=== PATIENT | male | born 1940 | race Caucasian/White ===

== ENCOUNTER 2024-04-05 12:01 | Inpatient (IN) | payer MEDICARE ==
[2024-04-05 12:58] LABS: #Basophils Less than 0.03 10x3/uL (0.0-0.2); #Eosinphils Less than 0.03 10x3/uL (0.0-0.7); %Basophils 0.1 % (0.0-1.0); %Eosinophils 0.1 % (0.0-10.0); %Lymphocytes 9.3 % (21.0-51.0); %Monocytes 8.1 % (0.0-10.0); %Neutrophils 80.6 % (42.0-75.0); Hematocrit 22.4 % (42.0-52.0); Hemoglobin 7.4 g/dL (14.0-18.0); Mean Corpuscular Hemoglobin 31.6 pg (27.0-31.0); Mean Corpuscular Volume 95.7 fL (78.0-98.0); Mean Platelet Volume 12.4 fL (7.4-10.4); Platelet Count 136 10x3/uL (130-400); Red Blood Cell (RBC) Count 2.34 mill/uL (4.70-6.10)
[2024-04-05 13:18] LABS: Troponin I 0.172 ng/mL (< 0.028)
[2024-04-05 13:26] LABS: ALT (SGPT) 24 U/L (8-55); AST (SGOT) 32 U/L (5-34); Albumin 2.2 g/dL (3.4-4.8); Alkaline Phosphatase 77 U/L (40-110); Anion Gap 16 mmol/L (10-20); BUN (Urea Nitrogen) 25 mg/dL (8.4-25.7); Bilirubin, Total 0.5 mg/dL (0.2-1.2); Calc. Creatinine Clearance 0 mL/min (70-130); Calcium 7.6 mg/dL (7.8-10.44); Carbon Dioxide 26 mmol/L (23-31); Chloride 102 mmol/L (98-107); Estimated GFR 13; Globulin 3.3 g/dL (2.4-3.5); Glucose 117 mg/dL (83-110); Potassium 3.4 mmol/L (3.5-5.1); Protein, Total 5.5 g/dL (5.8-8.1); Sodium 141 mmol/L (136-145)
[2024-04-05] MEDS ORDERED: Doxycycline 100 MG CAP ONE (14:32)
[2024-04-05] MEDS ORDERED: Sodium Chloride 0.9% 100 ML ONE (14:33)
[2024-04-05] MEDS ORDERED: cefTRIAXone (ROCEPHIN) 2 GM VIAL ONE (14:33)
[2024-04-05] MEDS ORDERED: Acetaminophen 325 MG TAB PO PRN (15:11)
[2024-04-05] MEDS ORDERED: Dextrose 50% Abboject 50 ML SYRINGE SLOW IVP PRN (15:11)
[2024-04-05] MEDS ORDERED: Dextrose 5% in Water 1,000 ML IV PRN (15:11)
[2024-04-05] MEDS ORDERED: Glucagon 1 MG/ML KIT IM PRN (15:11)
[2024-04-05] MEDS ORDERED: Insulin Regular 300 UNITS/3 ML VIAL SC PRN (15:11)
[2024-04-05 16:30] VITALS: BMI 17.4
[2024-04-05 17:37] LABS: Troponin I 0.163 ng/mL (< 0.028)
[2024-04-05 17:38] LABS: Lactic Acid 1.5 mmol/L (0.5-2.2)
[2024-04-05] MEDS: Sodium Chloride 0.9% 1,000 ML IV SCH (17:59)
[2024-04-05] MEDS: Doxycycline 100 MG CAP PO SCH (20:57)
[2024-04-05] MEDS: traZODone HCl 50 MG TAB PO SCH (20:57)
[2024-04-05] MEDS: OLANZapine 5 MG TAB PO SCH (20:57)
[2024-04-05] MEDS: Atorvastatin Calcium 40 MG TAB PO SCH (20:57)
[2024-04-05] MEDS ORDERED: Famotidine 20 MG TAB PO SCH (21:00)
[2024-04-05 21:32] LABS: Troponin I 0.154 ng/mL (< 0.028)
[2024-04-06 04:44] LABS: Hematocrit 21.6 % (42.0-52.0); Mean Corpuscular HGB CONC 32.4 g/dL (32.0-36.0); Mean Corpuscular Hemoglobin 30.7 pg (27.0-31.0); Mean Corpuscular Volume 94.7 fL (78.0-98.0); Platelet Count 125 10x3/uL (130-400); RBC Distribution Width 17.2 % (11.5-14.5); Red Blood Cell (RBC) Count 2.28 mill/uL (4.70-6.10)
[2024-04-06 05:14] LABS: Lymphocytes 7 % (21-51); Monocytes 2 % (0-10); Neutrophil 91 % (42-75); Platelet Adequacy Comment Platelets Decreased; Polychromasia SLIGHT = 2-3 cells HPF (0-2)
[2024-04-06 05:25] LABS: Anion Gap 15 mmol/L (10-20); BUN (Urea Nitrogen) 29 mg/dL (8.4-25.7); Calc. Creatinine Clearance 10 mL/min (70-130); Calcium 7.3 mg/dL (7.8-10.44); Carbon Dioxide 23 mmol/L (23-31); Chloride 106 mmol/L (98-107); Estimated GFR 12; Glucose 87 mg/dL (83-110); Potassium 3.3 mmol/L (3.5-5.1); Sodium 141 mmol/L (136-145)
[2024-04-06] MEDS: Levothyroxine Sodium 50 MCG TAB PO SCH (06:19)
[2024-04-06 08:45] VITALS: BMI 17.4
[2024-04-06] MEDS: Pantoprazole DR 40 MG TAB PO SCH (10:20)
[2024-04-06] MEDS: Finasteride 5 MG TAB PO SCH (10:20)
[2024-04-06 10:33] LABS: HBSAB Concentration 264.74 mIU/mL; HBsAg Index 0.28 S/CO (0-0.99); Hep B Core Total Ab NONREACTIVE (NonReactive); Hep B Core Total Index 0.11 S/CO (0-0.79); Hep B Surf AB REACTIVE (NonReactive); Hep B Surf Ag NONREACTIVE S/CO (NonReactive); Hep C IgG Ab NONREACTIVE S/CO (NonReactive)
[2024-04-06] MEDS: cefTRIAXone\\ROCEPHIN 2 GM in Sodium Chloride 0.9% 100 ML IVPB SCH (16:43)
[2024-04-07 09:15] LABS: #Basophils Less than 0.03 10x3/uL (0.0-0.2); #Eosinphils Less than 0.03 10x3/uL (0.0-0.7); %Basophils 0.1 % (0.0-1.0); %Lymphocytes 11.9 % (21.0-51.0); %Monocytes 6.9 % (0.0-10.0); %Neutrophils 78.9 % (42.0-75.0); Hematocrit 23.1 % (42.0-52.0); Hemoglobin 7.5 g/dL (14.0-18.0); Mean Corpuscular HGB CONC 32.5 g/dL (32.0-36.0); Mean Corpuscular Hemoglobin 30.7 pg (27.0-31.0); Mean Corpuscular Volume 94.7 fL (78.0-98.0); Mean Platelet Volume 12.5 fL (7.4-10.4); Platelet Count 138 10x3/uL (130-400); Red Blood Cell (RBC) Count 2.44 mill/uL (4.70-6.10)
[2024-04-07 09:45] LABS: Anion Gap 11 mmol/L (10-20); BUN (Urea Nitrogen) 16 mg/dL (8.4-25.7); Calc. Creatinine Clearance 16 mL/min (70-130); Calcium 7.4 mg/dL (7.8-10.44); Carbon Dioxide 28 mmol/L (23-31); Chloride 102 mmol/L (98-107); Estimated GFR 20; Glucose 88 mg/dL (83-110); Potassium 3.1 mmol/L (3.5-5.1); Sodium 138 mmol/L (136-145)
[2024-04-07 11:37] VITALS: BP 96/57; TEMP 97.9
[2024-04-07] MEDS: Potassium Chloride 20 MEQ TAB PO SCH (14:47)
== END 2024-04-07 15:11 | DRG 871 ==
LOC: ERS 12:01 → 2NO 16:14
PROVIDERS: ADMIT Internal Medicine; ATTEND Internal Medicine
DX: A41.9 Sepsis, unspecified organism (principal); I21.A1 Myocardial infarction type 2; J69.0 Pneumonitis due to inhalation of food and vomit; N18.6 End stage renal disease; I12.0 Hypertensive chronic kidney disease with stage 5 chronic kidney disease or end stage renal disease; E87.20 Acidosis, unspecified; F03.911 Unspecified dementia, unspecified severity, with agitation; F05 Delirium due to known physiological condition; Z66 Do not resuscitate; G47.33 Obstructive sleep apnea (adult) (pediatric); E03.9 Hypothyroidism, unspecified; E78.5 Hyperlipidemia, unspecified; W19.XXXA Unspecified fall, initial encounter; I25.10 Atherosclerotic heart disease of native coronary artery without angina pectoris; E11.22 Type 2 diabetes mellitus with diabetic chronic kidney disease; R13.10 Dysphagia, unspecified; E87.6 Hypokalemia; Z88.8 Allergy status to other drugs, medicaments and biological substances
CPT/HCPCS: 36415; 36416; 71045; 80048; 80053; 83605; 84145; 84484; 85025; 86704; 86706; 86803; 86850; 86900; 86901; 87040; 87340; 90935; 93005; 96374; G0257; J0696; J3490; J7050